=== PATIENT | female | born 1975 | race African-American/Black ===

== ENCOUNTER 2018-10-30 09:04 | Inpatient (IN) ==
[2018-10-30] MEDS ORDERED: ACETAMINOPHEN 325 MG TABLET PO PRN (14:29)
[2018-10-30] MEDS ORDERED: SODIUM CHLORIDE 0.9% 1,000 ML IV SCH (14:30)
[2018-10-30] MEDS ORDERED: ENOXAPARIN 40 MG/0.4 ML SYRINGE SUBCUT SCH (14:30)
[2018-10-30 15:13] LABS: Basophils # 0.1 10*3/uL (0.0-0.2); Basophils % 0.7 % (0.0-0.8); Eosinophils # 0.2 10*3/uL (0.0-0.87); Eosinophils % 1.4 % (0.00-10.9); Hematocrit 33.4 VOL% (35.7-47.0); Hemoglobin 10.5 GM/DL (12.0-16.0); Immature Granulocytes % 0.6 %; Immature Granulocytes Absolute 0.09 #; Lymphocytes # 3.3 10*3/uL (1.4-4.0); Lymphocytes % 20.6 % (21.3-54.2); Mean Corpuscular HGB Conc 31.4 GM/DL (32-36); Mean Corpuscular Volume 89.8 FL (87-102); Mean Platelet Volume 11.9 FL (9.6-12.0); Monocytes % 4.6 % (1.7-12.7); Neutrophils % 72.1 % (38.7-73.9); Platelet Count 245 T/CUMM (130-400); Red Blood Count 3.72 MC/CUMM (3.8-5.5); Red Cell Distribution Width 15.4 % (9.3-17.3); White Blood Count 16.2 T/CUMM (4-12)
[2018-10-30 15:32] LABS: Albumin 2.8 G/DL (3.4-5.0); Bilirubin,Total 0.5 MG/DL (0.2-1.0); Calcium 7.9 MG/DL (8.5-10.1); Osmolality,Calculated 285.6 MOS/KG (273-304); Total Protein 6.4 G/DL (6.4-8.3)
[2018-10-30 15:37] LABS: Risk Ratio 2.26; Thyroid Stimulating Hormone 0.288 uIU/ml (0.358-3.74); VLDL CHOLESTEROL 10.6 MG/DL
[2018-10-30] MEDS ORDERED: MAGNESIUM SULF RIDER 2 GM in PREMIX 1 EACH IV ONE ×2 (16:48→22:11)
[2018-10-30] MEDS: ONDANSETRON 4 MG/2 ML VIAL IV PRN (17:38)
[2018-10-30] MEDS: FAMOTIDINE 20 MG/2 ML VIAL IV SCH (17:39)
[2018-10-30] MEDS: SODIUM CHLORIDE 0.45% 1,000 ML IV SCH (17:39)
[2018-10-30 18:43] LABS: Apearance,Urine CLOUDY (Clear); Bacteria,Urine Occasional /HPF (Few); Bilirubin,Urine Negative (Negative); Blood, Urine Negative (Negative); Glucose,Urine (UA) Negative (Negative); Hyaline Casts,Urine 6 /LPF (0-3); Ketones,Urine Negative (Negative); Mucus,Urine Many /LPF (Occasional); Nitrite,Urine Negative (Negative); Protein,Urine Negative; RBC,Urine 2 /HPF (0-4); Squamous Epithelial Cell,Urine Many /HPF (0-10); Urine Color Yellow (Yellow); Urine Specific Gravity 1.014 (1.001-1.035); Urine Urobilinogen < 2.0 EU/DL (0.2-1.0); WBC,Urine 3 /HPF (0-6)
[2018-10-30] MEDS: ENOXAPARIN 40 MG/0.4 ML SYRINGE SUBCUT SCH (21:01)
[2018-10-30] MEDS ORDERED: cefTRIAXone 1,000 MG VIAL IM SCH (22:30)
[2018-10-30 23:42] LABS: HIV Antigen/Antibody Result Nonreactive (Nonreactive); Hepatitis B Core IgM Quant 0.09 Index; Hepatitis B Surface Ag Quant < 0.10 Index; Hepatitis B Surface Ag Result Negative (Negative); Hepatitis C Virus Ab Quant 0.09 Index; Hepatitis C Virus Ab Result Negative (Negative)
[2018-10-31 04:38] LABS: Basophils # 0.1 10*3/uL (0.0-0.2); Basophils % 1.2 % (0.0-0.8); Eosinophils # 0.4 10*3/uL (0.0-0.87); Eosinophils % 3.8 % (0.00-10.9); Hematocrit 26.1 VOL% (35.7-47.0); Hemoglobin 8.5 GM/DL (12.0-16.0); Immature Granulocytes % 0.3 %; Immature Granulocytes Absolute 0.03 #; Lymphocytes # 4.7 10*3/uL (1.4-4.0); Lymphocytes % 39.8 % (21.3-54.2); Mean Corpuscular HGB Conc 32.6 GM/DL (32-36); Mean Corpuscular Volume 87.6 FL (87-102); Monocytes % 5.6 % (1.7-12.7); Neutrophils % 49.3 % (38.7-73.9); Platelet Count 219 T/CUMM (130-400); Red Blood Count 2.98 MC/CUMM (3.8-5.5); Red Cell Distribution Width 15.3 % (9.3-17.3); White Blood Count 11.7 T/CUMM (4-12)
[2018-10-31 05:04] LABS: Calcium 7.4 MG/DL (8.5-10.1); Osmolality,Calculated 287.4 MOS/KG (273-304)
[2018-10-31] MEDS: FAMOTIDINE 20 MG/2 ML VIAL IV SCH ×2 (05:18→17:54)
[2018-10-31] MEDS: POTASSIUM CHLORIDE RIDER 10 MEQ in PREMIX 1 EACH IV SCH ×2 (07:44→08:52)
[2018-10-31] MEDS: ONDANSETRON 4 MG/2 ML VIAL IV PRN (07:44)
[2018-10-31] MEDS ORDERED: LACTATED RINGERS 1,000 ML IV SCH (08:00)
[2018-10-31] MEDS: SODIUM CHLORIDE 0.45% 1,000 ML IV SCH (08:39)
[2018-10-31] MEDS: SODIUM CHLOR 0.45% KCL 20 MEQ 20 MEQ/1,000 ML BAG IV SCH ×2 (08:52→17:56)
[2018-10-31] MEDS: cefTRIAXone 1,000 MG VIAL IV SCH (08:55)
[2018-10-31] MEDS ORDERED: PROPOFOL 200 MG/20 ML VIAL IV ONE (09:00)
[2018-10-31] MEDS ORDERED: LIDOCAINE 2% 5 ML VIAL ONE (09:00)
[2018-10-31 09:10] LABS: Rheumatoid Factor < 15 IU/ML (<15)
[2018-10-31 13:38] LABS: Free T4 (Free Thyroxine) 0.87 NG/DL (0.76-1.46)
[2018-10-31] MEDS: ENOXAPARIN 40 MG/0.4 ML SYRINGE SUBCUT SCH (21:35)
[2018-11-01] MEDS: SODIUM CHLOR 0.45% KCL 20 MEQ 20 MEQ/1,000 ML BAG IV SCH ×2 (00:45→14:06)
[2018-11-01] MEDS: FAMOTIDINE 20 MG/2 ML VIAL IV SCH ×2 (05:26→17:30)
[2018-11-01 05:43] LABS: Basophils # 0.1 10*3/uL (0.0-0.2); Eosinophils # 0.4 10*3/uL (0.0-0.87); Eosinophils % 3.2 % (0.00-10.9); Hematocrit 30.2 VOL% (35.7-47.0); Hemoglobin 9.6 GM/DL (12.0-16.0); Immature Granulocytes % 0.4 %; Immature Granulocytes Absolute 0.06 #; Lymphocytes # 4.4 10*3/uL (1.4-4.0); Lymphocytes % 32.2 % (21.3-54.2); Mean Corpuscular HGB Conc 31.8 GM/DL (32-36); Mean Corpuscular Volume 89.9 FL (87-102); Mean Platelet Volume 12.5 FL (9.6-12.0); Monocytes % 5.2 % (1.7-12.7); Platelet Count 239 T/CUMM (130-400); Red Blood Count 3.36 MC/CUMM (3.8-5.5); Red Cell Distribution Width 15.4 % (9.3-17.3); White Blood Count 13.6 T/CUMM (4-12)
[2018-11-01 05:50] LABS: Calcium 7.7 MG/DL (8.5-10.1); Osmolality,Calculated 283.6 MOS/KG (273-304)
[2018-11-01] MEDS: ONDANSETRON 4 MG/2 ML VIAL IV PRN ×2 (08:43→14:13)
[2018-11-01] MEDS: NYSTATIN 500,000 UNIT/5 ML UDCUP SWISH/SWAL SCH ×4 (08:43→22:16)
[2018-11-01] MEDS: cefTRIAXone 1,000 MG VIAL IV SCH (08:43)
[2018-11-01] MEDS: FLUCONAZOLE INJ 100 MG in IV BAG 1 EACH IV SCH (08:48)
[2018-11-01] MEDS: POTASSIUM CHLORIDE RIDER 10 MEQ in PREMIX 1 EACH IV SCH ×2 (10:05→11:13)
[2018-11-01] MEDS: ENOXAPARIN 40 MG/0.4 ML SYRINGE SUBCUT SCH (22:16)
[2018-11-02] MEDS: SODIUM CHLOR 0.45% KCL 20 MEQ 20 MEQ/1,000 ML BAG IV SCH (00:11)
[2018-11-02] MEDS: FAMOTIDINE 20 MG/2 ML VIAL IV SCH (05:08)
[2018-11-02 06:13] LABS: Basophils # 0.1 10*3/uL (0.0-0.2); Eosinophils # 0.5 10*3/uL (0.0-0.87); Eosinophils % 4.1 % (0.00-10.9); Hematocrit 25.6 VOL% (35.7-47.0); Hemoglobin 8.5 GM/DL (12.0-16.0); Immature Granulocytes % 0.2 %; Immature Granulocytes Absolute 0.03 #; Lymphocytes # 5.5 10*3/uL (1.4-4.0); Lymphocytes % 44.2 % (21.3-54.2); Mean Corpuscular HGB Conc 33.2 GM/DL (32-36); Mean Corpuscular Volume 87.7 FL (87-102); Mean Platelet Volume 11.7 FL (9.6-12.0); Monocytes % 5.8 % (1.7-12.7); Neutrophils % 44.7 % (38.7-73.9); Platelet Count 228 T/CUMM (130-400); Red Blood Count 2.92 MC/CUMM (3.8-5.5); Red Cell Distribution Width 15.3 % (9.3-17.3); White Blood Count 12.4 T/CUMM (4-12)
[2018-11-02 06:32] LABS: Calcium 7.4 MG/DL (8.5-10.1)
[2018-11-02 06:37] LABS: Burr Cells Few; Hypochromasia Slight; Microcytosis Slight; Ovalocytes Slight; Platelet Estimate Normal; Polychromasia Slight; Schistocytes Slight
[2018-11-02 06:38] LABS: Spherocytes Few
[2018-11-02] MEDS: cefTRIAXone 1,000 MG VIAL IV SCH (08:45)
[2018-11-02] MEDS: FLUCONAZOLE INJ 100 MG in IV BAG 1 EACH IV SCH (08:46)
[2018-11-02] MEDS: NYSTATIN 500,000 UNIT/5 ML UDCUP SWISH/SWAL SCH ×2 (08:51→11:52)
[2018-11-02 16:03] VITALS: BP 90/59
== END 2018-11-02 17:00 | disposition home or self-care (01) | DRG 369 ==
LOC: N.5E 13:25 → SUATTDRO 14:30
PROVIDERS: ADMIT Internal Medicine; ATTEND Internal Medicine

== ENCOUNTER 2018-12-13 04:02 | Observation (INO) ==
[2018-12-13 05:01] LABS: Basophils # 0.1 10*3/uL (0.0-0.2); Basophils % 0.5 % (0.0-0.8); Eosinophils # 0.5 10*3/uL (0.0-0.87); Hematocrit 25.5 VOL% (35.7-47.0); Immature Granulocytes % 0.6 %; Immature Granulocytes Absolute 0.07 #; Lymphocytes # 3.6 10*3/uL (1.4-4.0); Lymphocytes % 30.1 % (21.3-54.2); Mean Corpuscular HGB Conc 31.4 GM/DL (32-36); Mean Corpuscular Volume 91.7 FL (87-102); Mean Platelet Volume 10.4 FL (9.6-12.0); Monocytes % 7.1 % (1.7-12.7); Neutrophils % 57.7 % (38.7-73.9); Platelet Count 387 T/CUMM (130-400); Red Blood Count 2.78 MC/CUMM (3.8-5.5); Red Cell Distribution Width 17.1 % (9.3-17.3); White Blood Count 11.9 T/CUMM (4-12)
[2018-12-13 05:07] LABS: Alanine Aminotransferase 16 U/L (13-56); Albumin 2.3 G/DL (3.4-5.0); Alkaline Phosphatase 83 U/L (45-117); Aspartate Amino Transferase 21 U/L (0-37); Bilirubin,Total < 0.39 MG/DL (0.2-1.0); Blood Urea Nitrogen 11 MG/DL (7-18); Calcium 7.9 MG/DL (8.5-10.1); Glucose 77 MG/DL (74-106); Total Protein 5.8 G/DL (6.4-8.3)
[2018-12-13] MEDS ORDERED: FUROSEMIDE 40 MG/4 ML VIAL IV STA (05:27)
[2018-12-13 05:29] LABS: Band Neutrophils 1 % (0-10); Eosinophils 2 % (0-10); Lymphocytes 40 % (20-55); Platelet Estimate Adequate; Segmented Neutrophils 54 % (50-85); Total Cells Counted 100
[2018-12-13 05:30] LABS: Hypochromasia 1+; Microcytosis Slight
[2018-12-13] MEDS ORDERED: POTASSIUM CHLORIDE 20 MEQ TABLET PO PRN (06:15)
[2018-12-13 06:24] LABS: Apearance,Urine CLEAR (Clear); Bilirubin,Urine Negative (Negative); Blood, Urine Negative (Negative); Glucose,Urine (UA) Negative (Negative); Ketones,Urine Negative (Negative); Nitrite,Urine Negative (Negative); Protein,Urine Negative; Squamous Epithelial Cell,Urine Occasional /HPF (0-10); Urine Color Colorless (Yellow); Urine Specific Gravity 1.004 (1.001-1.035); Urine Urobilinogen < 2.0 EU/DL (0.2-1.0); WBC,Urine <1 /HPF (0-6)
[2018-12-13 06:37] LABS: Barbiturates Screen,Urine Negative (Negative); Benzodiazepines Screen,Urine Negative (Negative); Cannabinoid Screen,Urine Negative (Negative); Opiate Screen,Urine Negative (Negative); Phencyclidine Screen,Urine Negative (Negative)
[2018-12-13] MEDS ORDERED: ONDANSETRON ODT 4 MG TABLET PO PRN (07:08)
[2018-12-13] MEDS: ENOXAPARIN 40 MG/0.4 ML SYRINGE SUBCUT SCH (07:26)
[2018-12-13 07:56] LABS: Basophils % 0.4 % (0.0-0.8); Eosinophils # 0.3 10*3/uL (0.0-0.87); Eosinophils % 3.1 % (0.00-10.9); Hemoglobin 8.5 GM/DL (12.0-16.0); Immature Granulocytes % 0.5 %; Immature Granulocytes Absolute 0.05 #; Lymphocytes # 2.8 10*3/uL (1.4-4.0); Lymphocytes % 25.4 % (21.3-54.2); Mean Corpuscular HGB Conc 31.5 GM/DL (32-36); Mean Corpuscular Volume 91.5 FL (87-102); Mean Platelet Volume 10.3 FL (9.6-12.0); Monocytes % 5.8 % (1.7-12.7); Neutrophils % 64.8 % (38.7-73.9); Platelet Count 425 T/CUMM (130-400); Red Blood Count 2.95 MC/CUMM (3.8-5.5); White Blood Count 10.8 T/CUMM (4-12)
[2018-12-13 08:36] LABS: Folate 10.5 NG/ML (5.4-24.0); Vitamin B12 491 PG/ML (211-911)
[2018-12-13 09:58] LABS: Hemoglobin A1 (Alkaline) 97.4 % (96.5-98.5); Hemoglobin A2 (Alkaline) 2.6 % (1.5-3.5)
[2018-12-13 12:14] LABS: Sedimentation Rate-Westergren 43 MM/HR (0-20)
[2018-12-13] MEDS: ACETAMINOPHEN 325 MG TABLET PO PRN (18:35)
[2018-12-13] MEDS: DOCUSATE SODIUM 100 MG CAPSULE PO SCH (21:01)
[2018-12-14] MEDS: ACETAMINOPHEN 325 MG TABLET PO PRN (01:46)
[2018-12-14 05:04] LABS: Basophils # 0.1 10*3/uL (0.0-0.2); Basophils % 0.6 % (0.0-0.8); Eosinophils # 0.4 10*3/uL (0.0-0.87); Eosinophils % 4.2 % (0.00-10.9); Hematocrit 23.9 VOL% (35.7-47.0); Hemoglobin 7.7 GM/DL (12.0-16.0); Immature Granulocytes % 0.6 %; Immature Granulocytes Absolute 0.06 #; Lymphocytes # 2.9 10*3/uL (1.4-4.0); Lymphocytes % 27.4 % (21.3-54.2); Mean Corpuscular HGB Conc 32.2 GM/DL (32-36); Mean Corpuscular Volume 89.5 FL (87-102); Mean Platelet Volume 10.4 FL (9.6-12.0); Neutrophils % 59.2 % (38.7-73.9); Platelet Count 409 T/CUMM (130-400); Red Blood Count 2.67 MC/CUMM (3.8-5.5); Red Cell Distribution Width 16.9 % (9.3-17.3); White Blood Count 10.4 T/CUMM (4-12)
[2018-12-14] MEDS: ENOXAPARIN 40 MG/0.4 ML SYRINGE SUBCUT SCH (08:52)
[2018-12-14] MEDS: DOCUSATE SODIUM 100 MG CAPSULE PO SCH (08:53)
[2018-12-14] MEDS ORDERED: SODIUM CHLORIDE 0.9% 1,000 ML IV PRN ×2 (09:54→11:58)
[2018-12-14 17:20] VITALS: BP 114/70
== END 2018-12-14 17:21 | disposition home or self-care (01) ==
LOC: N.ED 04:02 → INTOOBSV 06:11 → N.EDINP 06:11 → N.2E 06:29